=== PATIENT | female | born 1995 | race Caucasian/White ===

== ENCOUNTER → 2018-07-02 15:50 | Outpatient (CLI) | payer BC, OTHER, SELFPAY ==
[2018-07-04 14:46] LABS: Lead, Blood Adult 16+yrs 1 ug/dL (0-4)
== END ==
PROVIDERS: Family Provider Family Medicine; PCP Family Medicine; Visit Provider Family Medicine
DX: Z13.88 Encounter for screening for disorder due to exposure to contaminants (principal)
CPT/HCPCS: 36415; 83655

== ENCOUNTER → 2019-09-24 | Outpatient (CLI) | payer BC, SELFPAY | END | disposition home or self-care (01) | LOC: LABSPEC 15:56 | PROVIDERS: Family Provider Family Medicine; PCP Family Medicine; Referring Provider Otolaryngology Otolaryngology/Facial Plastic Surgery; Visit Provider Otolaryngology Otolaryngology/Facial Plastic Surgery | DX: H60.90 Unspecified otitis externa, unspecified ear (principal); Z86.14 Personal history of Methicillin resistant Staphylococcus aureus infection | CPT/HCPCS: 87070; 87075; 87077; 87186; 87205 ==

== ENCOUNTER 2020-04-14 12:55 | Emergency (ER) | payer BC, SELFPAY ==
[2020-04-14 12:57] VITALS: BP 147/74; PULSE 98; RESP 17; TEMP 36.1; O2SAT 99; BMI 36.3
[2020-04-14] MEDS: Morphine 2 MG/ML Syringe IV (13:39)
[2020-04-14] MEDS: Ondansetron 4 MG/2 ML Vial IV (13:39)
[2020-04-14] MEDS: 0.9% Normal Saline 1,000 ML 150 ML IV (13:39)
[2020-04-14 13:40] VITALS: BP 129/69; PULSE 85; RESP 17; O2SAT 95
[2020-04-14 13:53] LABS: Absolute Lymphocyte Count 0.72 X10^3/uL (0.83-4.51); Absolute Neutrophil Count 10.4 X10^3/uL (2.0-7.7); Basophil# 0.02 X10^3/uL; Basophil% 0.2 % (0-1); Eosinophil# 0.01 X10^3/uL; Eosinophils% 0.1 % (0-5); Hematocrit 38.6 % (37-47); Lymphocyte # 0.72 X10^3/ul (4.0); Lymphocyte % 6.3 % (19-41); Mean Corp Hgb Conc 31.1 g/dL (32-36); Mean Corpuscular Hgb 24.3 pg (27.0-32.0); Mean Corpuscular Volume 78.3 fL (81-99); Mean Platelet Vol. 9.3 fl (6.2-12.0); Monocyte# 0.27 X10^3/uL; Monocyte% 2.4 % (0-10); NRBC Flagged by Analyzer 0 % (0-5); Neutrophil # 10.42 X10^3/uL (2.7-7.7); Neutrophil % 90.7 % (47-70); Platelet Count 347 K/mm3 (150-450); RBC Distribution Width SD 45.8 fl (35.1-43.9); Red Blood Count 4.93 M/mm3 (4.2-5.4); White Blood Count 11.5 K/mm3 (4.4-11.0)
--- NOTE | 2020-04-14 13:53 | ED.DCSUM_ITS ---
History of Present Illness Chief Complaint: Flank Pain Informant: Patient Onset: Weeks Context: Gradual Onset Current Severity: Moderate Maximum Severity: Severe Narrative: Patient presents with low back pain on the left for the last 3 weeks. It is intermittently been radiating around to the left lower quadrant. She states this morning she had so much pain she difficulty getting out of bed. She states her skin feels numb in that area but she has no overlying rash or skin change. She has noted some suprapubic tingling but denies dysuria. She denies injury to her back. She denies history of kidney stones or ovarian cyst. She has not had fever or chills. - Past Medical History (1) Seasonal allergies Status: Chronic Past Medical History - Allergies and Home Meds Allergies/Adverse Reactions: Allergies acetaminophen [From Tylenol] Allergy (Verified 04/14/20 12:56) Hives morphine Allergy (Verified 04/14/20 14:11) Hives NSAIDS (Non-Steroidal Anti-Inflamma Allergy (Verified 04/14/20 12:56) Hives Primary Care Physician: Radha Emerson PA-C [Primary Care Provider] - Prior records reviewed: Yes Surgical History: - - D&C Lives: With Family Smoking Status: Never smoker Review of Systems General: Denies: Chills, Fever Eyes: Denies: Visual changes - bilaterally ENT: Denies: Bilateral ear pain Cardiovascular: Denies: Chest pain Respiratory: Denies: Dyspnea, Cough Gastrointestinal: Reports: Abdominal pain. Denies: Nausea, Vomiting, Diarrhea Genitourinary: Denies: Dysuria, Hematuria, Frequency Musculoskeletal: Reports: Back pain. Denies: Extremity Pain Skin: Denies: Rash, Wounds Neurological: Reports: Numbness. Denies: Headache Endocrine: Denies: Polyuria, Polydipsia Hematologic: Denies: Easy bruising Allergy: Denies: Uticaria Physical Exam Vital Signs/Narrative: Vital Signs Temp Pulse Resp BP Pulse Ox 04/14/20 13:40 85 17 129/69 H 95 04/14/20 12:57 97.0 F L 98 17 147/74 H 99 Inital Vital Signs reviewed: Yes General: Well nourished, Well developed Head: Normocephalic ENT: Moist mucous membranes Neck: Supple Cardiovascular: Regular rate, Regular rhythm Respiratory: No distress, CTA bilaterally Abdomen: Soft, Nontender Extremities: Nontender Skin: Normal color, No rash Neurological: Alert, Oriented x3 Psychological: Normal affect Diagnostic/Tx/Re-eval Impressions Abdomen/Pelvis CT 04/14/20 14:20 IMPRESSION: Small gallstones are seen along the dependent portion of the gallbladder lumen. Electronically Signed: Balaji Latif, at 15:09 EDT , Service support , 04/14/20 14:20 Abdomen/Pelvis without Cont [CT] Stat Laboratory Results 04/14/20 04/14/20 04/14/20 13:40 13:40 13:40 WBC 11.5 H RBC 4.93 Hgb 12.0 Hct 38.6 MCV 78.3 L MCH 24.3 L MCHC 31.1 L RDW Std Deviation 45.8 H RDW Coeff of Gege 16.0 H Plt Count 347 MPV 9.3 Immature Gran % (Auto) 0.300 Neut % (Auto) 90.7 H Lymph % (Auto) 6.3 L [place] % (Auto) 2.4 Eos % (Auto) 0.1 Baso % (Auto) 0.2 Absolute Neuts (auto) 10.4 H Absolute Lymphs (auto) 0.72 L Nucleated RBC % 0 Sodium 139 Potassium 3.8 Chloride 107 Carbon Dioxide 25.0 Anion Gap 7 BUN 13 Creatinine 0.70 Estim Creat Clear Calc 114.01 Est GFR (MDRD) Af Amer 129 Est GFR (MDRD) Non-Af 107 BUN/Creatinine Ratio 18.5 Glucose 135 H Calcium 8.7 Serum , Qual NEGATIVE Urine Color Urine Clarity Urine pH Ur Specific [place] Urine Protein Urine Glucose (UA) Urine Ketones Urine Occult Blood Urine Nitrite Urine Bilirubin Urine Urobilinogen Ur Leukocyte Esterase Urine RBC Urine WBC Ur Squamous Epith Cells Urine Bacteria Urine Mucus 04/14/20 14:10 WBC RBC Hgb Hct MCV MCH MCHC RDW Std Deviation RDW Coeff of Gege Plt Count MPV Immature Gran % (Auto) Neut % (Auto) Lymph % (Auto) [place] % (Auto) Eos % (Auto) Baso % (Auto) Absolute Neuts (auto) Absolute Lymphs (auto) Nucleated RBC % Sodium Potassium Chloride Carbon Dioxide Anion Gap BUN Creatinine Estim Creat Clear Calc Est GFR (MDRD) Af Amer Est GFR (MDRD) Non-Af BUN/Creatinine Ratio Glucose Calcium Serum , Qual Urine Color Yellow Urine Clarity Clear Urine pH 5.0 Ur Specific [place] 1.025 Urine Protein 30 H Urine Glucose (UA) Normal Urine Ketones 150 H Urine Occult Blood Negative Urine Nitrite Negative Urine Bilirubin Negative Urine Urobilinogen Normal Ur Leukocyte Esterase Negative Urine RBC 0 SEEN Urine WBC 5-10 SEEN Ur Squamous Epith Cells 5-10 SEEN Urine Bacteria 2+ Urine Mucus 2+ - Medical Decision Making Patient does have documented allergy to NSAIDs as well as Tylenol. She states she breaks out in hives. She does tell me that she has taken Vicodin before, however is confused when I tell her that this contains Tylenol. She was given 2 mg of morphine along with Zofran to the IV. Following this she did develop hives on her extremities. She was given 25 mg of Benadryl. Solu-Medrol and a Lidoderm patch were applied topically to her back. CT scan does not show evidence of acute kidney stone. I think her pain is musculoskeletal in nature. She will be given Lidoderm patches as well as prednisone and Valium as muscle relaxer at home. ED Disposition - Plan for ED Patient: Disposition: Home or Assisted Living Diagnosis: Lumbar paraspinal muscle spasm Instructions: ED SPASM Muscle, ED LUMBAR SPRAIN/STRAIN Prescriptions: Prednisone [Deltasone] 40 mg PO DAILY #10 tab Transmission Status: Pending to [facility] Lidocaine [Lidoderm Patch] 1 patch TOPICAL BID PRN #6 patch PRN Reason: Pain Score 4-10/10 Transmission Status: Pending to [facility] Diazepam [Valium] 5 mg PO Q8 PRN #10 tablet PRN Reason: Muscle Spasm Transmission Status: Sent to [facility] Referrals: Radha Emerson PA-C [Primary Care Provider] - 3-5 Days if not improving
[2020-04-14 14:04] LABS: Anion Gap 7 (5-15); BUN 13 mg/dL (7-18); BUN/Creat Ratio 18.5 RATIO (10-20); Calcium,Total 8.7 mg/dL (8.5-10.1); Chloride 107 mmol/L (98-107); EST Glomerular Filtration Rate 107 mL/min (>60); Est Glom Filt Rate - Afr Amer 129 mL/min (>60); Estimated Creatinine Clearance 114.01 ml/min; Glucose 135 mg/dL (74-106); Potassium 3.8 mmol/L (3.5-5.1); Sodium Level 139 mmol/L (136-145)
[2020-04-14] MEDS: DiphenhydrAMINE 50 MG/ML Syringe 25 MG IV (14:11)
--- NOTE | 2020-04-14 14:11 | ED.RN ---
hives to left arm noted after morphine. ordered benadryl- see JAN.
[2020-04-14 14:15] LABS: Internal QC Validated? YES +Cl - CLEAR BKGD
[2020-04-14 14:16] LABS: Pregnancy, Serum, hCG Quali. NEGATIVE Negative
--- NOTE | 2020-04-14 14:20 | CT_ITS ---
STUDY: CT ABDOMEN AND PELVIS WITHOUT CONTRAST REASON FOR EXAM: Female, 25 years old. PT STATED LEFT FLANK PAIN RADIATION DOSAGE (If Supplied By Facility): CTDIvol = ( 14.28 ) mGy, DLP = ( 772.05 ) mGycm TECHNIQUE: Transaxial images were obtained from the dome of the diaphragm to the symphysis pubis without oral contrast, and without intravenous contrast. Sagittal and coronal images were reconstructed. Individualized dose optimization techniques were used for this CT. COMPARISON: None. FINDINGS: The visualized lung bases are unremarkable. The visualized portions of the heart are within normal limits. Normal liver. Tiny gallstones are seen in the dependent portion of the gallbladder lumen. Normal spleen. Normal pancreas. Normal bilateral adrenal glands. Normal right kidney. Normal left kidney. Normal visualized stomach. Normal small intestine. Normal colon. The appendix is visualized and appears normal. Normal abdominal aorta. Normal inferior vena cava. Normal retroperitoneum. Normal urinary bladder. There is a small umbilical hernia containing fat. Normal osseous structures. CT/Abdomen/Pelvis without Cont IMPRESSION: Small gallstones are seen along the dependent portion of the gallbladder lumen. Electronically Signed: Balaji Latif, at 15:09 EDT , Service support ,
[2020-04-14 14:24] LABS: Red Blood Cells-Urine 0 SEEN /hpf (0-5)
[2020-04-14 14:37] LABS: Color, Urine Yellow (Yellow); Glucose, Dipstick Normal (Normal); Leukocyte Esterase-Dipstick Negative /ul (Negative); Nitrite-Dipstick Negative (Negative); Occult Blood-Urine Negative /ul (Negative); Protein-Dipstick 30 mg/dl (Negative); Specific Gravity, Urine 1.025 (1.002-1.030); Urine Bilirubin Dipstick Negative (Negative); Urine Clarity Clear (Clear); Urine Urobilinogen Normal (Normal)
[2020-04-14 14:44] LABS: Bacteria 2+ /hpf (None Seen); Mucous, Urine 2+ /hpf (<or=2+); Squamous Epithelial Cells - UA 5-10 SEEN /hpf (5-10); White Blood Cells 5-10 SEEN /hpf (0-5)
[2020-04-14 14:47] LABS: Ketone-Dipstick 150 mg/dl (Negative)
[2020-04-14 15:00] VITALS: BP 115/77; PULSE 88; RESP 20; O2SAT 93
[2020-04-14] MEDS: MethylPREDNISolone 125 MG/2 ML Vial IV (15:00)
[2020-04-14] MEDS: Lidocaine 5% Patch 1 PATCH TOPICAL (15:40)
== END 2020-04-14 15:47 | disposition home or self-care (01) ==
PROVIDERS: Emergency Provider Emergency Medicine; PCP Family Medicine
DX: M62.830 Muscle spasm of back (principal)
CPT/HCPCS: 74176; 80048; 81001; 84703; 85025; 96361; 96374; 96375; 99283; J7030; A4216; J2405

== ENCOUNTER → 2020-08-09 | Outpatient (CLI) | payer BC, SELFPAY ==
[2020-08-09 17:33] LABS: Absolute Lymphocyte Count 1.47 X10^3/uL (0.83-4.51); Absolute Neutrophil Count 6.3 X10^3/uL (2.0-7.7); Basophil# 0.03 X10^3/uL; Basophil% 0.4 % (0-1); Eosinophils% 2.4 % (0-5); Hematocrit 38.8 % (37-47); Hemoglobin 12.8 g/dL (12.0-15.0); Lymphocyte # 1.47 X10^3/ul (4.0); Lymphocyte % 17.3 % (19-41); Mean Corpuscular Hgb 27.6 pg (27.0-32.0); Mean Corpuscular Volume 83.8 fL (81-99); Mean Platelet Vol. 9.3 fl (6.2-12.0); Monocyte# 0.52 X10^3/uL; Monocyte% 6.1 % (0-10); NRBC Flagged by Analyzer 0 % (0-5); Neutrophil # 6.25 X10^3/uL (2.7-7.7); Neutrophil % 73.4 % (47-70); Platelet Count 328 K/mm3 (150-450); RBC Distribution Width CV 17.2 % (11.6-14.6); RBC Distribution Width SD 52.3 fl (35.1-43.9); Red Blood Count 4.63 M/mm3 (4.2-5.4); White Blood Count 8.5 K/mm3 (4.4-11.0)
[2020-08-09 17:34] LABS: Color, Urine Yellow (Yellow); Glucose, Dipstick Normal (Normal); Ketone-Dipstick Negative (Negative); Leukocyte Esterase-Dipstick Negative /ul (Negative); Nitrite-Dipstick Negative (Negative); Occult Blood-Urine Negative /ul (Negative); Protein-Dipstick Negative (Negative); Specific Gravity, Urine 1.025 (1.002-1.030); Urine Bilirubin Dipstick Negative (Negative); Urine Clarity Clear (Clear); Urine Urobilinogen Normal (Normal)
[2020-08-09 18:59] LABS: Thyroid Stim Hormone (TSH) 3.75 uIU/mL (0.358-3.74)
[2020-08-10 09:11] LABS: HIV - WCH Non-Reactive (Nonreactive); Hepatitis B Surface Antigen Non-Reactive (Nonreactive); Hepatitis C Antibody Non-Reactive (Nonreactive); Rubella IgG 11.5 IU/mL
[2020-08-10 13:50] LABS: Free T3 2.3 pg/mL (2.18-3.98); T4 Free Direct 0.95 ng/dL (0.76-1.46)
[2020-08-12 03:06] LABS: Chlamydia By Nucleic Acid AMP Negative (Negative)
[2020-08-12 05:23] LABS: Prenatal RPR NONREACTIVE (NONREACTIVE)
[2020-08-12 06:55] LABS: Gonococcus By Nucleic Acid AMP Negative (Negative)
[2020-08-16 01:34] LABS: HPV Reflexed? NOT INDICATED
== END | disposition home or self-care (01) ==
LOC: WOBLAB 16:15
PROVIDERS: PCP Family Medicine; Visit Provider Obstetrics & Gynecology
DX: O99.282 Endocrine, nutritional and metabolic diseases complicating pregnancy, second trimester (principal); E03.9 Hypothyroidism, unspecified; Z3A.00 Weeks of gestation of pregnancy not specified
CPT/HCPCS: 36415; 81002; 84439; 84443; 84481; 85025; 86703; 86762; 86803; 87340; 87491; 87591; 88175; G0145

== ENCOUNTER 2021-12-12 04:53 | Emergency (ER) | payer BC, SELFPAY ==
[2021-12-12 04:54] VITALS: BP 141/92; PULSE 91; RESP 16; TEMP 36.6; O2SAT 96; BMI 41.1
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
[2021-12-12 05:53] VITALS: RESP 16
[2021-12-12 05:53] LABS: Absolute Lymphocyte Count 1.49 X10^3/uL (0.83-4.51); Absolute Neutrophil Count 3.1 X10^3/uL (2.0-7.7); Basophil# 0.06 X10^3/uL; Basophil% 1.1 % (0-1); Eosinophil# 0.15 X10^3/uL; Eosinophils% 2.9 % (0-5); Hematocrit 48.2 % (37-47); Hemoglobin 15.7 g/dL (12.0-15.0); Lymphocyte # 1.49 X10^3/ul (0.83-4.51); Lymphocyte % 28.3 % (19-41); Mean Corp Hgb Conc 32.6 g/dL (32-36); Mean Corpuscular Hgb 28.7 pg (27.0-32.0); Mean Corpuscular Volume 88.1 fL (81-99); Monocyte# 0.43 X10^3/uL; Monocyte% 8.2 % (0-10); NRBC Flagged by Analyzer 0 % (0-5); Neutrophil # 3.12 X10^3/uL (2.7-7.7); Neutrophil % 59.3 % (47-70); Platelet Count 307 K/mm3 (150-450); RBC Distribution Width CV 14.4 % (11.6-14.6); RBC Distribution Width SD 46.3 fl (35.1-43.9); Red Blood Count 5.47 M/mm3 (4.2-5.4); White Blood Count 5.3 K/mm3 (4.4-11.0)
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
[2021-12-12 05:57] LABS: Amphetamine Urine VISTA NEGATIVE (<1000 ng/mL); Barbiturate Urine VISTA NEGATIVE (< 200 ng/mL); Benzodiazepine Urine VISTA NEGATIVE (< 200 ng/mL); Cocaine Urine VISTA NEGATIVE (< 300 ng/mL); Ecstacy Urine VISTA NEGATIVE (< 500 ng/mL); Methadone Urine VISTA NEGATIVE (< 300 ng/mL); PCP Urine VISTA NEGATIVE (< 25 ng/mL); THC Urine VISTA NEGATIVE (< 50 ng/mL); Vista UDS pH Range 5
[2021-12-12 06:19] LABS: Anion Gap 10 (5-15); BUN 7 mg/dL (7-18); BUN/Creat Ratio 9.6 RATIO (10-20); Calcium,Total 9.1 mg/dL (8.5-10.1); Chloride 109 mmol/L (98-107); Creatinine, Serum 0.73 mg/dL (0.55-1.02); EST Glomerular Filtration Rate 102 mL/min (>60); Est Glom Filt Rate - Afr Amer 123 mL/min (>60); Estimated Creatinine Clearance 108.37 ml/min; Glucose 99 mg/dL (74-106); Internal QC Validated? YES +Cl - CLEAR BKGD; Potassium 3.8 mmol/L (3.5-5.1); Pregnancy, Serum, hCG Quali. NEGATIVE Negative; Sodium Level 141 mmol/L (136-145)
--- NOTE | 2021-12-12 07:14 | NURSING ---
CALLED CRISIS, TALKED TO DENISE. FAXED CHART
[2021-12-12 08:03] VITALS: RESP 16
--- NOTE | 2021-12-12 08:32 | NURSING ---
J LUIS, CRISIS, TALKING TO PATIENT
[2021-12-12 09:38] VITALS: BP 130/81; PULSE 87; RESP 14; O2SAT 97
--- NOTE | 2021-12-12 09:39 | ED.RN ---
safety planned reviewed with patient. pt agreeable with no questions or concerns.
== END 2021-12-12 09:53 | disposition home or self-care (01) ==
PROVIDERS: Emergency Provider Student in an Organized Health Care Education/Training Program; PCP Family Medicine; Visit Provider Student in an Organized Health Care Education/Training Program
DX: S10.91XA Abrasion of unspecified part of neck, initial encounter (principal); X83.8XXA Intentional self-harm by other specified means, initial encounter; S10.93XA Contusion of unspecified part of neck, initial encounter; F32.A Depression, unspecified; Z20.822 Contact with and (suspected) exposure to COVID-19; F41.9 Anxiety disorder, unspecified; Z79.899 Other long term (current) drug therapy; Y93.9 Activity, unspecified; Y92.9 Unspecified place or not applicable
CPT/HCPCS: 80048; 80307; 82077; 84703; 85025; 87426; 99283

== ENCOUNTER 2022-06-02 16:20 | Emergency (ER) | payer BC, SELFPAY ==
[2022-06-02 16:20] VITALS: BP 162/85; PULSE 127; RESP 18; TEMP 36.1; O2SAT 98; BMI 41.1
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
== END 2022-06-02 18:14 | disposition home or self-care (01) ==
PROVIDERS: Emergency Provider Emergency Medicine; Visit Provider Emergency Medicine
DX: S16.1XXA Strain of muscle, fascia and tendon at neck level, initial encounter (principal); S39.012A Strain of muscle, fascia and tendon of lower back, initial encounter; S50.812A Abrasion of left forearm, initial encounter; S60.812A Abrasion of left wrist, initial encounter; V43.52XA Car driver injured in collision with other type car in traffic accident, initial encounter
CPT/HCPCS: 99282